=== PATIENT | male | born 1985 | race Caucasian/White ===

== ENCOUNTER → 2018-12-12 15:03 | Oncology outpatient (ONC) | payer OTHER, SELFPAY ==
[2018-12-12 15:59] VITALS: BP 127/77; PULSE 55; RESP 16; TEMP 36.5; O2SAT 98
--- NOTE | 2018-12-12 16:24 | ONC.CONS ---
History of Present Illness - Data of Consult Consult date: 12/12/18 - Consult Narrative Narrative: Diagnosis: Leukopenia History of present illness: Jossue Ayala is a 33 year old male who is referred for further evaluation of a low white blood cell count. The patient reports that he had routine blood testing done as part of physical exam in June. He was feeling quite well and had no specific complaints. At that time, his white count was 3.9 hemoglobin was 14.7 hematocrit 43 platelets were 173,000. Differential showed 56% neutrophils and 40% lymphocytes. On recheck in September, his white count was 3.53 with a normal red cell count and platelet count. His neutrophil count was 38% and lymphocyte count was 49%. I had the patient denies having had previous blood test and is unaware of any prior history of cytopenias. He denies any trouble with recurrent infections. He has not needed any antibiotics over the last few years. He did have an acute illness following a trip to [place] the resolved relatively quickly. He has had a couple of upper respiratory infections but not on out of the ordinary. He denies any sinusitis or dental infections. He has not had any urinary tract infections. He has not had any bacterial skin infections but has had possible tinea versicolor and has been using some topical antifungals as needed. He denies any fevers chills or night sweats. His appetite and energy level have been good. He has not been losing any weight. He has not noticed any adenopathy. No shortness of breath or cough. No GI complaints. He otherwise feels well. He is not taking any regular prescription medications. His past medical history is otherwise unremarkable. Social history: He is and lives on [facility]. He does not smoke. He has occasional alcohol use. Family history is negative for malignancy or blood dyscrasias. CC: Yang Miller MD Review of Systems - Patient Self-Reported Symptoms SR Skin issues: Skin rash or itching Constitutional: no weight loss, no decreased activity level Ears, nose, mouth, throat: no headaches, no dental problems Gastrointestinal: no change in appetite, no abdominal pain Integumentary: rash Exam Vital signs: Vital Signs Temp Pulse Resp BP Pulse Ox 12/12/18 15:59 97.7 F 55 L 16 127/77 98 Intake and Output 12/12/18 12/12/18 12/12/18 07:59 15:59 23:59 Other: Weight 72.6 kg Patient Weight 12/12/18 23:59 Weight 72.6 kg - Constitutional positive no acute distress, positive average body habitus - Routine HEENT Exam Head: Present: normocephalic, atraumatic Eye: Present: EOMI, PERRL. Absent: conjunctival icterus, scleral injection ENT: Present: mucous membranes moist, oropharynx clear, dentition normal - Routine Neck Exam Present: supple. Absent: lymphadenopathy, thyromegaly - Routine Chest/Breast/Axilla Exam Axillae: Absent: lymphadenopathy - Routine Respiratory Exam Present: Clear to auscultation bilaterally. Absent: rales, wheezes - Routine Cardiovascular Exam Present: RRR, S1, S2. Absent: murmur - Routine Abdominal Exam Present: soft, normoactive bowel sounds. Absent: tenderness, organomegaly, mass - Routine Extremities Exam Absent: cyanosis, clubbing, edema - Routine Back/Spine Exam Back/Spine: Absent: paraspinal tenderness, vertebral tenderness - Routine Skin Exam Present: intact. Absent: petechiae, rash - Routine Neurological Exam Present: alert, oriented X3 - Routine Psychiatric Exam Present: normal affect, normal thought process Assessment and Plan (1) Leukopenia Current visit: Yes Status: Acute A 33-year-old man with history of mild leukopenia without any infectious symptoms. He does give a history of tinea versicolor which might potentially be related. The duration of his leukopenia is unknown. He is really asymptomatic. I think it makes sense to look for easily treatable causes of leukopenia including B12 or folate deficiency, hypothyroidism. It may be important to rule out viral causes such as HIV or hepatitis C. his lack of clinical illness makes EBV year CMV less likely. Autoimmune neutropenia could be considered. His lack of symptoms or recurrent infections makes cyclic neutropenia less likely. Normal platelet count or red cell count would make an intrinsic marrow problem much less likely. Today, we will check a repeat CBC as well as B12 folate TSH HIV hep C and antineutrophil antibodies. He will return to clinic in about 2 weeks for follow-up.
[2018-12-12 16:41] LABS: Add Manual Diff / Slide Review NO; Basophils Absolute Auto 0 /uL (0-100); Basophils Percent Auto 0.2 % (0-2); Eosinophils Absolute Auto 100 /uL (0-450); Eosinophils Percent Auto 1.4 % (2-4); Hematocrit 43.3 % (41-53); Hemoglobin 14.5 g/dL (13.5-17.5); Lymphocytes Absolute Auto 1900 /uL (1100-4500); Lymphocytes Percent Auto 40.5 % (25-40); Mean Corpuscular HGB Conc 33.5 % (30-36); Mean Corpuscular Hemoglobin 30.4 PG (26-34); Mean Corpuscular Volume 90.7 fL (80-100); Monocytes Absolute Auto 400 /uL (0-900); Monocytes Percent Auto 8.4 % (3-14); Neutrophils Absolute Auto 2400 /uL (1500-7000); Neutrophils Percent Auto 49.5 % (50-75); Platelet Count 173 X10^3/uL (150-400); Red Blood Cell Count 4.77 X10^6/uL (4.5-5.9); Red Cell Distribution Width 13.9 % (11.6-14.8); White Blood Cell Count 4.8 X10^3/uL (4.5-11.0)
[2018-12-12 18:43] LABS: Thyroid Stimulating Hormone 2.55 uIU/mL (0.47-4.68)
[2018-12-12 19:03] LABS: HIV 1 and 2 Antibody NEGATIVE (NEGATIVE); Hep C Virus Ab w/Reflex Quant NEGATIVE s/c (NEGATIVE)
[2018-12-12 19:18] LABS: Folate 12.4 ng/mL (2.76-20.0); Vitamin B12 223 pg/mL (239-931)
--- NOTE | 2018-12-13 16:42 | PC.NURSE ---
left message per Dr Mancini request. Reported B12 is low at 223, normal low is 239. requested he f/u with primary provider, continue to take B12 suppliments, and have B12 rechecked in one months time. If remains low, then schedule for B12 shots. Pt is welcome to keep his 01/03/19 appt, but may also cancel if he wishes until B12 has be rechecked as requested.
== END ==
DX: D72.819 Decreased white blood cell count, unspecified (principal); Z13.29 Encounter for screening for other suspected endocrine disorder; Z13.0 Encounter for screening for diseases of the blood and blood-forming organs and certain disorders involving the immune mechanism
CPT/HCPCS: 82607; 82746; 84443; 85025; 86703; 86803; 99204; 99214